=== PATIENT | male | born 1990 | race Caucasian/White ===

== ENCOUNTER 2025-05-02 08:43 | Outpatient (CLI) | payer BC ==
[2025-05-02] MEDS ORDERED: Furosemide 40 MG (4 mL) VIAL ONE (09:55)
== END 2025-05-02 08:44 | disposition home or self-care (01) ==
LOC: NM 08:43
PROVIDERS: ATTEND Urology
DX: N13.5 Crossing vessel and stricture of ureter without hydronephrosis (principal); R94.4 Abnormal results of kidney function studies
CPT/HCPCS: 78708; A4641; A9562; J1940

== ENCOUNTER 2025-07-17 06:49 | Day surgery (SDC) | payer BC ==
[2025-07-07 10:25] VITALS: BMI 29.9
[2025-07-17] MEDS ORDERED: cefTRIAXone (ROCEPHIN) 1 GM VIAL ONE (08:00)
[2025-07-17] MEDS ORDERED: fentaNYL PF 100 MCG/2 ML SYRINGE ONE (08:51)
[2025-07-17] MEDS ORDERED: PROPOFOL 20 ML ONE (08:51)
[2025-07-17] MEDS ORDERED: Lidocaine 1% PF 5 ML VIAL ONE (08:51)
[2025-07-17] MEDS ORDERED: Ondansetron PF 4 MG/2 ML Vial ONE (08:51)
[2025-07-17] MEDS ORDERED: Ketorolac Tromethamine 30 MG (1 mL) VIAL ONE (09:55)
[2025-07-17] MEDS ORDERED: Oxybutynin 5 MG TAB ONE (10:56)
[2025-07-17] MEDS ORDERED: HYDROcodone/Acetaminophen 5/325 mg Tablet ONE (11:36)
== END 2025-07-17 12:25 | disposition home or self-care (01) ==
LOC: SDC 06:49
PROVIDERS: ATTEND Urology
PROC: 0TJB8ZZ Inspection of Bladder, Via Natural or Artificial Opening Endoscopic (ICD-10-PCS; principal; 2025-07-17)
PROC: BT1DZZZ Fluoroscopy of Right Kidney, Ureter and Bladder (ICD-10-PCS; principal; 2025-07-17)
DX: N13.1 Hydronephrosis with ureteral stricture, not elsewhere classified (principal); E78.5 Hyperlipidemia, unspecified
CPT/HCPCS: 74420; C1758; C1769; C2617; J0696; J1100; J1885; J2250; J2405; J2704; Q9967

== ENCOUNTER 2025-09-18 13:49 | Outpatient (CLI) | payer BC | END 2025-09-18 13:50 | disposition home or self-care (01) | LOC: ULT 13:49 | PROVIDERS: ATTEND Urology | DX: N13.30 Unspecified hydronephrosis (principal); N28.1 Cyst of kidney, acquired | CPT/HCPCS: 76770 ==

== ENCOUNTER 2025-10-21 08:48 | Outpatient (CLI) | payer BC ==
[2025-10-21] MEDS ORDERED: Iopamidol 100 ML FS ONE (08:52)
== END 2025-10-21 08:49 | disposition home or self-care (01) ==
LOC: RAD 08:48
PROVIDERS: ATTEND Urology
PROC: 05H933Z Insertion of Infusion Device into Right Brachial Vein, Percutaneous Approach (ICD-10-PCS; principal; 2025-10-21)
DX: N13.1 Hydronephrosis with ureteral stricture, not elsewhere classified (principal)
CPT/HCPCS: 36000; 74410; 76937; Q9967